=== PATIENT | female | born 1955 | race Caucasian/White ===

== ENCOUNTER → 2016-08-22 | Outpatient (CLI) | payer MEDICARE ==
[2013-11-29 10:12] VITALS: BP 139/65
[~2016-08-22] MED LIST: ACET325T9 PO; CHOL10003 PO; CYAN10005 PO; Diltiazem Hcl PO; NAPR500T8 PO; Oxycodone Hcl/Acetaminophen PO; POTA500T5 PO; PRINZIDE PO; TIZA4TAB PO; TIZA4TAB8 PO
[2016-08-22 13:27] LABS: FREE T4 1.49 ng/dL (0.76-1.46); THYROID STIM HORMONE (TSH) < 0.007 uIU/mL (0.358-3.740)
== END | disposition home or self-care (01) ==
LOC: LAB 08:26
PROVIDERS: ATTEND Specialist
DX: E05.90 Thyrotoxicosis, unspecified without thyrotoxic crisis or storm (principal)
CPT/HCPCS: 36415; 84439; 84443; 84481; 86376

== ENCOUNTER → 2017-06-21 | Outpatient (CLI) | payer MEDICARE, OTHER ==
[2013-11-29 10:12] VITALS: BP 139/65
--- NOTE | 2017-06-21 12:46 | RAD ---
DATE: 06/21/2017 EXAM: MAMMO SHASHA SCREENING BILATERAL HISTORY: Screening Mammogram COMPARISON: Screening mammogram 04/22/2016 10/11/2011 This study was interpreted with the benefit of Computerized Aided Detection (CAD). The breast parenchyma shows scattered fibroglandular densities. Breast parenchyma level B. FINDINGS: Bilateral digital 2-D and 3-D tomosynthesis CC and MLO views. No suspicious mass, calcification or architectural distortion. No significant change from prior examination IMPRESSION: No mammographic evidence of malignancy. Recommend routine screening mammogram in 12 months. BI-RADS CATEGORY: 1 NEGATIVE RECOMMENDED FOLLOW-UP: 12M 12 MONTH FOLLOW-UP PQRS compliance statement: Patient information was entered into a reminder system with a target due date for the next mammogram. Mammography is a sensitive method for finding small breast cancers, but it does not detect them all and is not a substitute for careful clinical examination. A negative mammogram does not negate a clinically suspicious finding and should not result in delay in biopsying a clinically suspicious abnormality. "Our facility is accredited by the [employer] Mammography Program."
== END | disposition home or self-care (01) ==
LOC: MAMMO 09:14
PROVIDERS: ATTEND Specialist
DX: Z12.31 Encounter for screening mammogram for malignant neoplasm of breast (principal); I10 Essential (primary) hypertension; E78.00 Pure hypercholesterolemia, unspecified
CPT/HCPCS: 77063; 77067